=== PATIENT | male | born 1975 | race Hispanic/Latino ===

== ENCOUNTER → 2017-08-19 | Outpatient (CLI) | payer OTHER ==
[~2017-08-19] MED LIST: ALLOPURINOL300 MG PO; FLAGYL250 MG PO; HYDROCHLOROTHIA25 MG PO; LEVAQUIN500 MG PO; POTASSIUM CHLO20 ME1 PO; ULTRACET TABLE1 EACH PO
--- NOTE | 2017-08-19 18:38 | Diagnostic Imaging Report ---
PROCEDURE:X-RAY ABDOMEN - KUB COMPARISON:KUB 08/17/2016, CT 09/10/2016 INDICATIONS:FOLLOW UP ON CALCULUS OF KIDNEYS FINDINGS: There is a non-obstructed bowel-gas pattern. There are no calcifications projected over the renal shadows, expected course of the ureters or bladder. There are no acute osseous abnormalities. CONCLUSION: No radiographically apparent renal calculi. The tiny calculi noted on CT 09/10/2016 may not be radiographically apparent as they were not visualized on KUB 08/17/2016. Dictated by: Grzegorz Dubose M.D. on 08/19/2017 at 18:47 Electronically approved by: Grzegorz Dubose M.D. on 08/19/2017 at 18:47
== END ==
LOC: RAD 16:31
PROVIDERS: ATTEND Urology
DX: N20.0 Calculus of kidney (principal)
CPT/HCPCS: 74018

== ENCOUNTER 2017-12-04 12:36 | Emergency (ER) | payer OTHER ==
[~2017-12-04] VITALS: Ht 180.3 cm; Wt 117.9 kg
--- OUTSIDE RECORDS SUMMARY | 2017-12-04 12:39 | XMS REPORT ---
Author Author [facility] Address Unknown Phone Unavailable Care Team Providers Care Recreation Director Name Role Phone JERONIMO STROUD Unavailable Unavailable Problems This patient has no known problems. Allergies, Adverse Reactions, Alerts This patient has no known allergies or adverse reactions. Medications This patient has no known medications. Results Test Description Test Time Test Comments Text Results Atomic Results Result Comments ABDOMEN-1VIEW (KUB) [place] [address] Patient Name: ELY HONG MR #: [id number] : 1975 Age/Sex: 42/M Req #: [id number] Adm Physician: Ordered by: JERONIMO STROUD MD Report #: [id number] Location: [facility] Room/Bed: Procedure: [id number] DX/ABDOMEN-1VIEW (KUB) Exam Date: 08/19/17 Exam Time: 1700 REPORT STATUS: Signed PROCEDURE: X-RAY ABDOMEN - KUB COMPARISON: KUB 08/17/2016, CT 09/10/2016 INDICATIONS: FOLLOW UP ON CALCULUS OF KIDNEYS FINDINGS: There is a non-obstructed bowel- gas pattern. There are no calcifications projected over the renal shadows, expected course of the ureters or bladder. There are no acute osseous abnormalities. CONCLUSION: No radiographically apparent renal calculi. The tiny calculi noted on CT 09/10/2016 may not be radiographically apparent as they were not visualized on KUB 08/17/2016. Dictated by: Grzegorz Flor M.D. on 08/19/2017 at 18:47 Electronically approved by: Grzegorz Flor M.D. on 08/19/2017 at 18:47 Dictated By: GRZEGORZ FLOR MD 46 COPY TO: JERONIMO STROUD MD
[2017-12-04] MEDS ORDERED: CIPROFLOXACIN 400 MG/D5W 200ML 200 ML IV STA (12:49)
[2017-12-04] MEDS ORDERED: ONDANSETRON HCL INJ 2 MG/ML VIAL IV STA (12:49)
[2017-12-04] MEDS ORDERED: SODIUM CHLORIDE 0.9% 1000ML 1,000 ML IV SCH (13:00)
[2017-12-04] MEDS ORDERED: SODIUM CHLORIDE FLUSH 10 ML SYR INJ PRN (13:00)
[2017-12-04 13:11] LABS: BASOPHILS % 0.2 % (0.0-1.0); EOSINOPHILS # (AUTO) 0.4 (0.0-0.4); HEMATOCRIT 43.4 % (38.2-49.6); HEMOGLOBIN 14.6 g/dL (14.0-18.0); LYMPHOCYTES # (AUTO) 2.6 (1.0-3.2); LYMPHOCYTES % 21.7 % (18.0-39.1); MEAN CORPUSCULAR HEMOGLOBIN 28.2 pg (28-32); MEAN CORPUSCULAR HGB CONC 33.6 g/dL (31-35); MEAN CORPUSCULAR VOLUME 83.8 fL (81-99); MONOCYTES # (AUTO) 0.6 (0.2-0.8); MONOCYTES % 4.7 % (4.4-11.3); NEUTROPHILS # (AUTO) 8.5 (2.1-6.9); NEUTROPHILS % 70.1 % (38.7-80.0); PLATELET COUNT 258 x10e3/uL (140-360); RED BLOOD COUNT 5.18 x10e6/uL (4.3-5.7)
[2017-12-04 13:18] LABS: BILIRUBIN,URINE NEGATIVE (NEGATIVE); CLARITY,URINE CLEAR (CLEAR); COLOR,URINE YELLOW (YELLOW); KETONES,URINE NEGATIVE (NEGATIVE); LEUKOCYTE ESTERASE ,URINE NEGATIVE (NEGATIVE); NITRITE,URINE NEGATIVE (NEGATIVE); PROTEIN,URINE DIPSTICK NEGATIVE (NEGATIVE); URINE UROBILINOGEN 0.2 mg/dL (0.2 - 1)
[2017-12-04 13:22] LABS: BACTERIA,URINE FEW /HPF; EPITHELIAL CELLS,URINE FEW /LPF; RBC,URINE 0-5 /HPF (0-5); WBC,URINE (MAN) 0-5 /HPF (0-5)
[2017-12-04 13:27] LABS: ALANINE AMINOTRANSFERASE 53 IU/L (0-55); ALBUMIN 4.1 g/dL (3.5-5.0); ALKALINE PHOSPHATASE 93 IU/L (40-150); ANION GAP 15.8 mmol/L (8-16); BLOOD UREA NITROGEN 14 mg/dL (7-26); BUN/CREATININE RATIO 15 (6-25); CARBON DIOXIDE 25 mmol/L (22-29); CHLORIDE 105 mmol/L (98-107); CREATINE KINASE 112 IU/L (30-200); CREATININE, SERUM 0.94 mg/dL (0.72-1.25); EST GLOMERULAR FILTRATION RATE > 60 ML/MIN (60-); GLUCOSE 99 mg/dL (74-118); POTASSIUM 3.8 mmol/L (3.5-5.1); SODIUM 142 mmol/L (136-145)
[2017-12-04] MEDS ORDERED: METRONIDAZOLE 500MG/NS 100ML 100 ML IV ONE (13:30)
[2017-12-04] MEDS ORDERED: PROMETHAZINE 12.5MG/ NACL 0.9% 12.5 MG/50 ML BAG IV ONE (14:00)
--- NOTE | 2017-12-04 14:54 | Diagnostic Imaging Report ---
EXAM: CT Abdomen and Pelvis WITHOUT contrast INDICATION: \S\PO contrast only; h/o diverticulitis; iodine allergic COMPARISON: Abdominal CT 09/10/2016. TECHNIQUE: Abdomen and pelvis were scanned utilizing a multidetector helical scanner from the lung base to the pubic symphysis without administration of IV contrast. Absence of intravenous contrast decreases sensitivity for detection of focal lesions and vascular pathology. Coronal and sagittal reformations were obtained. Routine protocol was performed. IV CONTRAST: None ORAL CONTRAST: Gastrografin COMPLICATIONS: None RADIATION DOSE: Total DLP: 846.72 mGy*cm Estimated effective dose: (DLP x 0.015 x size factor) mSv CTDIvol has been reviewed. It is below the limits set by the Radiation Protocol Committee (RPC). FINDINGS: LINES and TUBES: None. LOWER THORAX: Unremarkable HEPATOBILIARY: No focal hepatic lesions. No biliary ductal dilation. GALLBLADDER: No radio-opaque stones or sludge. No wall thickening. SPLEEN: No splenomegaly. PANCREAS: No focal masses or ductal dilatation. ADRENALS: No adrenal nodules KIDNEYS/URETERS: No hydronephrosis. No suspicious renal contour abnormalities. Numerous tiny 1 to 2 mm stones. No ureteral calculi or bladder calculi. GI TRACT: No abnormal distention, wall thickening, or evidence of bowel obstruction. Enteric contrast within the distal esophagus and stomach. Sigmoid colonic diverticula without inflamed appearing diverticula. Minimal perisigmoid colonic haziness (series 2 image 76). Appendectomy. PELVIC ORGANS/BLADDER: Unremarkable. LYMPH NODES: No lymphadenopathy. VESSELS: Unremarkable. PERITONEUM / RETROPERITONEUM: No free air or fluid. BONES: Unremarkable. SOFT TISSUES: Unremarkable. IMPRESSION: Slight haziness of the fat adjacent to the sigmoid colon could reflect very early or late resolving diverticulitis. No specific evidence of acute diverticulitis. Nonobstructing nephrolithiasis. Signed by: DR. Grzegorz Dubose MD on 12/04/2017 2:51 PM
[2017-12-04] MEDS ORDERED: HYDROMORPHONE 2MG/ML INJ IV ONE (15:00)
== END 2017-12-04 16:12 | disposition home or self-care (01) ==
LOC: ER 12:36
DX: R10.32 Left lower quadrant pain (principal); K57.92 Diverticulitis of intestine, part unspecified, without perforation or abscess without bleeding
CPT/HCPCS: 96374; 99284; J0744; J1170; J2550; J7030

== ENCOUNTER → 2018-08-29 | Outpatient (CLI) | payer OTHER ==
--- NOTE | 2018-08-29 15:32 | Diagnostic Imaging Report ---
Exam: Abdominal film Clinical History: Renal stones Comparison: CT abdomen and pelvis without contrast 12/04/2017 DISCUSSION: No suspicious calcifications project over the renal shadows or expected ureteral courses. Punctate nonobstructing calculi seen on the comparison CT are poorly visualized and radiography. Bowel gas pattern shows no dilated, air-filled loops of bowel. No mass effect or organomegaly. No acute osseous abnormalities. IMPRESSION: No plain film evidence of urolithiasis. Refer to report for CT abdomen and pelvis 12/04/2017 for description of nonobstructing renal calculi. Signed by: Dr. Ludin Garner M.D. on 08/29/2018 3:28 PM
== END ==
LOC: RAD 14:44
PROVIDERS: ATTEND Urology
DX: N20.0 Calculus of kidney (principal)
CPT/HCPCS: 74018

== ENCOUNTER → 2019-08-28 | Outpatient (CLI) | payer OTHER ==
--- NOTE | 2019-08-28 16:44 | Diagnostic Imaging Report ---
Exam: KUB - 2 views Indication: Urinary calculi Comparison: KUB of 08/29/2018, CT abdomen and pelvis of 12/04/2017 Findings: Scattered punctate 2 mm renal calculi at the left upper pole and mid pole. No radiographically apparent right renal calculi. Nonobstructive bowel gas pattern. No free air. No acute osseous injury. Impression: Scattered punctate 2 mm left renal calculi. Signed by: Hi Ac MD on 08/28/2019 4:42 PM
== END ==
LOC: RAD 16:07
PROVIDERS: ATTEND Urology
DX: N20.0 Calculus of kidney (principal)
CPT/HCPCS: 74018

== ENCOUNTER → 2020-09-02 | Outpatient (CLI) | payer OTHER | LOC: RAD 14:35 | PROVIDERS: ATTEND Urology | DX: N20.0 Calculus of kidney (principal) | CPT/HCPCS: 74018 ==

== ENCOUNTER → 2020-12-10 | Outpatient (CLI) | payer OTHER | LOC: RAD 10:28 | PROVIDERS: ATTEND Urology | DX: N20.0 Calculus of kidney (principal) | CPT/HCPCS: 74018 ==